=== PATIENT | male | born 1955 | race Caucasian/White ===

== ENCOUNTER 2017-10-27 03:56 | Inpatient (IN) | payer OTHER ==
[~2017-10-27] VITALS: Ht 170.2 cm; Wt 95.3 kg
--- NOTE | 2017-10-27 04:39 | Emergency Room Report ---
History of Present Illness General Chief Complaint: Chest Pain Source: Patient Present Illness HPI Patient is a 61-year-old male brought in by EMS after increased chest discomfort. Patient states he was the having acute onset of chest pain while ambulating. The patient cannot state the other circumstances for pain. Patient was noted to have relief of pain after the EMS provided nitroglycerin. Patient had previously been taking nitroglycerin for angina. Patient had prior history of bipolar disorder. He denies being a smoker. He reports having a prior history of hypertension.The patient reports having recently increased ambulation due to getting lost. Allergies: Coded Allergies: No Known Allergies (Unverified , 10/27/17) Patient History Past Medical History: see triage record Reviewed Nursing Documentation: PMH: Agreed; PSxH: Agreed Nursing Documentation-PMH Hx Hypertension: Yes Review of Systems All Other Systems: limited - by poor historian Physical Exam Vital Signs Date Time Temp Pulse Resp B/P (MAP) Pulse Ox O2 Delivery O2 Flow Rate FiO2 10/27/17 03:41 97.8 104 18 140/90 96 Room Air 97.9 Sp02 EP Interpretation: reviewed, normal General Appearance: normal inspection, well appearing, no apparent distress, alert, GCS 15 Head: atraumatic ENT: normal ENT inspection, hearing grossly normal, normal voice Neck: normal inspection, full range of motion, supple, no bony tend Respiratory: normal inspection, lungs clear, normal breath sounds, no respiratory distress, no retraction, no wheezing Cardiovascular #1: regular rate, rhythm, no edema Gastrointestinal: normal inspection, normal bowel sounds, non tender, soft, no guarding, no hernia Genitourinary: no CVA tenderness Musculoskeletal: normal inspection, back normal, normal range of motion Neurologic: normal inspection, alert, oriented x3, responsive, round boner III-XII nml as tested, speech normal Psychiatric: normal inspection, judgement/insight normal, mood/affect normal Skin: normal inspection, normal color, no rash Medical Decision Making Diagnostic Impression: Primary Impression: Chest pain Additional Impressions: Rhabdomyolysis Dehydration ER Course Patient presented for chest pain. Differential diagnosis included but was not limited to acute coronary syndrome, pulmonary embolism, pneumonia, aortic dissection, shingles, pneumothorax, aortic dissection, esophageal rupture, pericarditis. Because of complexity of patient's case laboratory testing and imaging studies were ordered. I EKG interpreted by me showed normal sinus rhythm with left anterior fascicular block and left ventricular hypertrophy without acute ST or T wave changes. Rate of 102. The patient was noted to be pain-free after the nitroglycerin by EMS. The laboratory testing was notable for elevated CK as well as the normal troponin.The patient started on IV fluids. Patient was discussed with Dr. Darrius Lorenzana for transfer to [facility]. Labs Test 10/27/17 04:50 White Blood Count 6.1 K/UL (4.8-10.8) Red Blood Count 4.89 M/UL (4.70-6.10) Hemoglobin 14.9 G/DL (14.2-18.0) Hematocrit 42.9 % (42.0-52.0) Mean Corpuscular Volume 88 FL (80-99) Mean Corpuscular Hemoglobin 30.5 PG (27.0-31.0) Mean Corpuscular Hemoglobin Concent 34.7 G/DL (32.0-36.0) Red Cell Distribution Width 10.5 % (11.6-14.8) Platelet Count 171 K/UL (150-450) Mean Platelet Volume 6.4 FL (6.5-10.1) Neutrophils (%) (Auto) 83.0 % (45.0-75.0) Lymphocytes (%) (Auto) 13.0 % (20.0-45.0) Monocytes (%) (Auto) 3.4 % (1.0-10.0) Eosinophils (%) (Auto) 0.1 % (0.0-3.0) Basophils (%) (Auto) 0.5 % (0.0-2.0) Sodium Level 143 MMOL/L (136-145) Potassium Level 3.8 MMOL/L (3.5-5.1) Chloride Level 104 MMOL/L (98-107) Carbon Dioxide Level 24 MMOL/L (21-32) Anion Gap 15 mmol/L (5-15) Blood Urea Nitrogen 25 mg/dL (7-18) Creatinine 1.2 MG/DL (0.55-1.30) Estimat Glomerular Filtration Rate > 60 mL/min (>60) Glucose Level 97 MG/DL (74-106) Calcium Level 9.6 MG/DL (8.5-10.1) Total Bilirubin 1.6 MG/DL (0.2-1.0) Aspartate Amino Transf (AST/SGOT) 85 U/L (15-37) Alanine Aminotransferase (ALT/SGPT) 47 U/L (12-78) Alkaline Phosphatase 67 U/L (46-116) Total Creatine Kinase 1758 U/L (26-308) Creatine Kinase MB 58.2 NG/ML (0.0-3.6) Creatine Kinase MB Relative Index 3.3 Troponin I 0.006 ng/mL (0.000-0.056) C-Reactive Protein, Quantitative 0.6 mg/dL (0.00-0.90) Pro-B-Type Natriuretic Peptide 67 pg/mL (0-125) Total Protein 8.8 G/DL (6.4-8.2) Albumin 4.6 G/DL (3.4-5.0) Globulin 4.2 g/dL Albumin/Globulin Ratio 1.1 (1.0-2.7) Lipase 74 U/L (73-393) Urine Opiates Screen Negative (NEGATIVE) Urine Barbiturates Screen Negative (NEGATIVE) Phencyclidine (PCP) Screen Negative (NEGATIVE) Urine Amphetamines Screen Negative (NEGATIVE) Urine Benzodiazepines Screen Negative (NEGATIVE) Urine Cocaine Screen Negative (NEGATIVE) Urine Marijuana (THC) Screen Negative (NEGATIVE) EKG Diagnostic Results Rate: normal Rhythm: NSR ST Segments: no acute changes Rhythm Strip Diag. Results EP Interpretation: yes Rhythm: NSR, no PVC's, no ectopy Last Vital Signs Date Time Temp Pulse Resp B/P (MAP) Pulse Ox O2 Delivery O2 Flow Rate FiO2 10/27/17 03:41 97.8 104 18 140/90 96 Room Air 97.9 Status: improved Disposition: XFER SHT-TRM HOSP Condition: Serious Johnny Boyle MD Oct 27, 2017 04:39
[2017-10-27 04:55] LABS: BASOPHILS % (AUTO) 0.5 % (0.0-2.0); EOSINOPHILS % (AUTO) 0.1 % (0.0-3.0); HEMATOCRIT 42.9 % (42.0-52.0); HEMOGLOBIN 14.9 G/DL (14.2-18.0); MEAN CORPUSCULAR VOLUME 88 FL (80-99); MONOCYTES % (AUTO) 3.4 % (1.0-10.0); PLATELET COUNT 171 K/UL (150-450); RED BLOOD COUNT 4.89 M/UL (4.70-6.10); RED CELL DISTRIBUTION WIDTH 10.5 % (11.6-14.8); WHITE BLOOD COUNT 6.1 K/UL (4.8-10.8)
[2017-10-27 05:06] LABS: ANION GAP 15 mmol/L (5-15); BLOOD UREA NITROGEN 25 mg/dL (7-18); CALCIUM 9.6 MG/DL (8.5-10.1); CARBON DIOXIDE 24 MMOL/L (21-32); CHLORIDE 104 MMOL/L (98-107); CREATININE 1.2 MG/DL (0.55-1.30); POTASSIUM 3.8 MMOL/L (3.5-5.1); SODIUM 143 MMOL/L (136-145)
[2017-10-27] MEDS ORDERED: Sodium Chloride 500ML 500 ML IV ONE ×2 (05:15→05:45)
[2017-10-27 05:20] LABS: ALANINE AMINOTRANSFERASE 47 U/L (12-78); ALBUMIN 4.6 G/DL (3.4-5.0); ALBUMIN/GLOBULIN RATIO 1.1 (1.0-2.7); ALKALINE PHOSPHATASE 67 U/L (46-116); ASPARTATE AMINO TRANSFERASE 85 U/L (15-37); BILIRUBIN,TOTAL 1.6 MG/DL (0.2-1.0); CKMB 58.2 NG/ML (0.0-3.6); CREATINE KINASE 1758 U/L (26-308)
[2017-10-27 05:24] VITALS: BP 119/66
[2017-10-27 05:51] LABS: BILIRUBIN,DIRECT 0.6 MG/DL (0.0-0.3)
[2017-10-27 07:12] VITALS: BP 134/60
[2017-10-27] MEDS ORDERED: ATIVAN0.5 MG ORAL (09:26)
[2017-10-27] MEDS ORDERED: IBUPROFEN600 MG ORAL (09:26)
[2017-10-27] MEDS ORDERED: HYDROCHLOROTH12.5 M2 ORAL (09:26)
[2017-10-27] MEDS ORDERED: LISINOPRIL5 MG ORAL (09:26)
[2017-10-27] MEDS ORDERED: Lisinopril 20mg tab ORAL SCH (09:30)
[2017-10-27] MEDS ORDERED: Lexiscan 0.4mg/5ml syringe IV PRN (09:45)
--- NOTE | 2017-10-27 09:46 | Cardiac Electrophysiology PN ---
Subjective Subjective [id number] Objective Last 24 Hour Vital Signs Date Time Temp Pulse Resp B/P (MAP) Pulse Ox O2 Delivery O2 Flow Rate FiO2 10/27/17 09:27 68 14 125/67 100 Room Air 10/27/17 07:12 97.6 70 12 134/60 99 Nasal Cannula 97.6 10/27/17 05:24 98.0 85 15 119/66 99 Nasal Cannula 98.0 10/27/17 03:56 104 18 Room Air 10/27/17 03:41 97.8 104 18 140/90 96 Room Air 97.9 Intake and Output 10/26/17 10/27/17 19:00 07:00 Intake Total 0 ml Output Total 200 ml Balance -200 ml Intake Oral 0 ml Output Urine Total 200 ml Laboratory Tests Test 10/27/17 04:50 White Blood Count 6.1 K/UL (4.8-10.8) Red Blood Count 4.89 M/UL (4.70-6.10) Hemoglobin 14.9 G/DL (14.2-18.0) Hematocrit 42.9 % (42.0-52.0) Mean Corpuscular Volume 88 FL (80-99) Mean Corpuscular Hemoglobin 30.5 PG (27.0-31.0) Mean Corpuscular Hemoglobin Concent 34.7 G/DL (32.0-36.0) Red Cell Distribution Width 10.5 % (11.6-14.8) L Platelet Count 171 K/UL (150-450) Mean Platelet Volume 6.4 FL (6.5-10.1) L Neutrophils (%) (Auto) 83.0 % (45.0-75.0) H Lymphocytes (%) (Auto) 13.0 % (20.0-45.0) L Monocytes (%) (Auto) 3.4 % (1.0-10.0) Eosinophils (%) (Auto) 0.1 % (0.0-3.0) Basophils (%) (Auto) 0.5 % (0.0-2.0) Sodium Level 143 MMOL/L (136-145) Potassium Level 3.8 MMOL/L (3.5-5.1) Chloride Level 104 MMOL/L (98-107) Carbon Dioxide Level 24 MMOL/L (21-32) Anion Gap 15 mmol/L (5-15) Blood Urea Nitrogen 25 mg/dL (7-18) H Creatinine 1.2 MG/DL (0.55-1.30) Estimat Glomerular Filtration Rate > 60 mL/min (>60) Glucose Level 97 MG/DL (74-106) Calcium Level 9.6 MG/DL (8.5-10.1) Total Bilirubin 1.6 MG/DL (0.2-1.0) H Direct Bilirubin 0.6 MG/DL (0.0-0.3) H Aspartate Amino Transf (AST/SGOT) 85 U/L (15-37) H Alanine Aminotransferase (ALT/SGPT) 47 U/L (12-78) Alkaline Phosphatase 67 U/L (46-116) Total Creatine Kinase 1758 U/L (26-308) H Creatine Kinase MB 58.2 NG/ML (0.0-3.6) H Creatine Kinase MB Relative Index 3.3 Troponin I 0.006 ng/mL (0.000-0.056) C-Reactive Protein, Quantitative 0.6 mg/dL (0.00-0.90) Pro-B-Type Natriuretic Peptide 67 pg/mL (0-125) Total Protein 8.8 G/DL (6.4-8.2) H Albumin 4.6 G/DL (3.4-5.0) Globulin 4.2 g/dL Albumin/Globulin Ratio 1.1 (1.0-2.7) Lipase 74 U/L (73-393) Urine Opiates Screen Negative (NEGATIVE) Urine Barbiturates Screen Negative (NEGATIVE) Phencyclidine (PCP) Screen Negative (NEGATIVE) Urine Amphetamines Screen Negative (NEGATIVE) Urine Benzodiazepines Screen Negative (NEGATIVE) Urine Cocaine Screen Negative (NEGATIVE) Urine Marijuana (THC) Screen Negative (NEGATIVE) Dudley Shoemaker MD Oct 27, 2017 09:46
--- NOTE | 2017-10-27 10:30 | GI Initial Consult Note ---
History of Present Illness General Date patient seen: Oct 27, 2017 Time patient seen: 14:05 Reason for Hospitalization: Chest Pain Referring physician: ROMY Reason for Consultation: ABNORMAL LFTs Present Illness HPI Patient is a 61-year-old male brought in by EMS after increased chest discomfort. Patient states he was the having acute onset of chest pain while ambulating. The patient cannot state the other circumstances for pain. Patient was noted to have relief of pain after the EMS provided nitroglycerin. Patient had previously been taking nitroglycerin for angina. Patient had prior history of bipolar disorder. He denies being a smoker. He reports having a prior history of hypertension.The patient reports having recently increased ambulation due to getting lost. GI consulted for abnormal LFTs. Pt seen, awake A&Ox4 NAD with no active s/sx of N/V/D. Denies any abdominal pain, no diarrhea or N/V. Presents today with elevated AST and hyperbilirubinemia. No anemia. No leukocytosis. Pt states he has history of Hepatitis C. No history of endoscopy / colonoscopy. Home Meds Reported Medications Lorazepam* (ATIVAN*) 0.5 Mg Tablet, 0.5 MG ORAL THREE TIMES A DAY, TAB 10/27/17 Ibuprofen* (MOTRIN*) 600 Mg Tablet, 600 MG ORAL FOUR TIMES A DAY, #30 TAB 0 Refills 10/27/17 Lisinopril (LISINOPRIL*) 5 Mg Tablet, 5 MG ORAL DAILY, TAB 10/27/17 Hydrochlorothiazide* (HYDROCHLOROTHIAZIDE*) 12.5 Mg Capsule, 12.5 MG ORAL DAILY , CAP 10/27/17 Med list reviewed/reconciled: Yes Allergies: Coded Allergies: No Known Allergies (Unverified , 10/27/17) Patient History History Provided By: Patient, Medical Record PMH Narrative Hx Hypertension: Yes Social History: Denies: smoking, alcohol use, drug use, other Review of Systems All Other Systems: negative except mentioned in HPI Physical Exam Vital Signs Date Time Temp Pulse Resp B/P (MAP) Pulse Ox O2 Delivery O2 Flow Rate FiO2 10/27/17 03:41 97.8 104 18 140/90 96 Room Air 97.9 Sp02 EP Interpretation: reviewed, normal Labs Laboratory Tests Test 10/27/17 04:50 White Blood Count 6.1 K/UL (4.8-10.8) Red Blood Count 4.89 M/UL (4.70-6.10) Hemoglobin 14.9 G/DL (14.2-18.0) Hematocrit 42.9 % (42.0-52.0) Mean Corpuscular Volume 88 FL (80-99) Mean Corpuscular Hemoglobin 30.5 PG (27.0-31.0) Mean Corpuscular Hemoglobin Concent 34.7 G/DL (32.0-36.0) Red Cell Distribution Width 10.5 % (11.6-14.8) L Platelet Count 171 K/UL (150-450) Mean Platelet Volume 6.4 FL (6.5-10.1) L Neutrophils (%) (Auto) 83.0 % (45.0-75.0) H Lymphocytes (%) (Auto) 13.0 % (20.0-45.0) L Monocytes (%) (Auto) 3.4 % (1.0-10.0) Eosinophils (%) (Auto) 0.1 % (0.0-3.0) Basophils (%) (Auto) 0.5 % (0.0-2.0) Sodium Level 143 MMOL/L (136-145) Potassium Level 3.8 MMOL/L (3.5-5.1) Chloride Level 104 MMOL/L (98-107) Carbon Dioxide Level 24 MMOL/L (21-32) Anion Gap 15 mmol/L (5-15) Blood Urea Nitrogen 25 mg/dL (7-18) H Creatinine 1.2 MG/DL (0.55-1.30) Estimat Glomerular Filtration Rate > 60 mL/min (>60) Glucose Level 97 MG/DL (74-106) Calcium Level 9.6 MG/DL (8.5-10.1) Total Bilirubin 1.6 MG/DL (0.2-1.0) H Direct Bilirubin 0.6 MG/DL (0.0-0.3) H Aspartate Amino Transf (AST/SGOT) 85 U/L (15-37) H Alanine Aminotransferase (ALT/SGPT) 47 U/L (12-78) Alkaline Phosphatase 67 U/L (46-116) Total Creatine Kinase 1758 U/L (26-308) H Creatine Kinase MB 58.2 NG/ML (0.0-3.6) H Creatine Kinase MB Relative Index 3.3 Troponin I 0.006 ng/mL (0.000-0.056) C-Reactive Protein, Quantitative 0.6 mg/dL (0.00-0.90) Pro-B-Type Natriuretic Peptide 67 pg/mL (0-125) Total Protein 8.8 G/DL (6.4-8.2) H Albumin 4.6 G/DL (3.4-5.0) Globulin 4.2 g/dL Albumin/Globulin Ratio 1.1 (1.0-2.7) Lipase 74 U/L (73-393) Urine Opiates Screen Negative (NEGATIVE) Urine Barbiturates Screen Negative (NEGATIVE) Phencyclidine (PCP) Screen Negative (NEGATIVE) Urine Amphetamines Screen Negative (NEGATIVE) Urine Benzodiazepines Screen Negative (NEGATIVE) Urine Cocaine Screen Negative (NEGATIVE) Urine Marijuana (THC) Screen Negative (NEGATIVE) General Appearance: well appearing, no apparent distress, alert Head: normocephalic EENT: PERRL/EOMI, normal ENT inspection Neck: supple Respiratory: normal breath sounds, no respiratory distress Cardiovascular: normal rate Gastrointestinal: normal inspection, non tender, soft, normal bowel sounds, non -distended Rectal: deferred Genitourinary: deferred Musculoskeletal: normal inspection, back normal Neurologic: normal inspection, alert, oriented x3, responsive Psychiatric: normal inspection, judgement/insight normal, memory normal Skin: normal inspection, normal color, no rash, warm/dry, palpation normal, well hydrated Lymphatic: normal inspection, no adenopathy Current Medications Current Medications Medications (Trade) Dose Ordered Sig/Isatu Route PRN Reason Start Time Stop Time Status Last Admin Dose Admin Acetaminophen (Tylenol) 650 mg Q4H PRN ORAL Mild Pain (Pain Scale 1-3) 10/27/17 09:15 11/26/17 09:14 Dextrose (Dextrose 50%) 25 ml STAT PRN IV Hypoglycemia 10/27/17 09:15 11/26/17 09:14 Dextrose (Dextrose 50%) 50 ml STAT PRN IV Hypoglycemia 10/27/17 09:15 11/26/17 09:14 Diphenhydramine HCl (Benadryl) 25 mg Q6H PRN ORAL Itching/Pruritis 10/27/17 09:15 11/26/17 09:14 Enoxaparin Sodium (Lovenox) 40 mg Q24H SUBQ 10/27/17 10:00 11/26/17 09:59 Folic Acid (Folate) 1 mg DAILY ORAL 10/27/17 09:45 11/26/17 09:44 Lisinopril (Zestril) 10 mg DAILY ORAL 10/28/17 09:00 11/26/17 09:29 Ondansetron HCl (Zofran) 4 mg Q6H PRN IVP Nausea & Vomiting 10/27/17 09:15 11/26/17 09:14 Regadenoson (Lexiscan) 0.4 mg ONCE PRN IV PROCEDURE 10/27/17 09:45 10/28/17 23:59 Sodium Chloride 1,000 ml @ 150 mls/hr Q6H40M IV 10/27/17 05:45 11/26/17 05:44 Thiamine HCl (Vitamin B1) 100 mg DAILY ORAL 10/27/17 09:45 11/26/17 09:44 GI: Plan Problems: (1) Dehydration (2) Abnormal LFTs Plan no anemia. no leukocytosis. abnormal LFTs >> avoid statins, acetaminophen CT AP reviewed >> No acute findings. symptomatic treatment adv diet pain mgmt zofran prn prn transfusions ppi trend LFTs fu labs, hepatitis panel outpatient GI procedures Discussed with Dr. Sorto. Thank you for this patient referral, we will follow. The patient was seen and examined at bedside and all new and available data was reviewed in the patients chart. I agree with the above findings, impression and plan. (Patient seen earlier today. Signature stamp does not reflect patient encounter time.). - MD Qing RubioPage [facility] Oct 27, 2017 10:30
[2017-10-27] MEDS: Thiamine 100mg tab ORAL SCH (11:02)
[2017-10-27] MEDS: Enoxaparin 40mg Inj SUBQ SCH (11:05)
--- NOTE | 2017-10-27 11:30 | Diagnostic Imaging Report ---
Indication: Abdominal pain Technique: Continuous helical transaxial imaging of the abdomen and pelvis was obtained from the lung bases to the pubic symphysis. No intravenous contrast was administered. Coronal 2-D reformats were also obtained. Automatic Exposure Control was utilized. Total Dose length Product (DLP): [address] Dose Index Volume (CTDIvol): 0.15, 17.49 mGy Comparison: none Findings: The lung bases are clear. The liver is unremarkable. There is cholecystectomy clips present. There is no hydronephrosis. There are no renal stones identified. Normal appendix noted. No evidence of bowel obstruction. Mild mural calcium noted within the aorta. There is a small left inguinal hernia containing fat. Prostate calcification noted. Mild loss of height of L4 vertebra and multiple Schmorl's nodes within thoracic vertebral bodies noted. IMPRESSION: No acute findings. Atherosclerotic disease Status post cholecystectomy Old compression fracture deformity of the L4 vertebra. [facility] has communicated the preliminary results to the Emergency Department. Their findings are largely concordant with this report. The CT scanner at [facility] is accredited by the [employer] and the scans are performed using dose optimization techniques as appropriate to a performed exam including Automatic Exposure control.
--- NOTE | 2017-10-27 12:28 | Diagnostic Imaging Report ---
Indication: Dyspnea Comparison: None A single view chest radiograph was obtained. Findings: No definite infiltrate or pulmonary vascular congestion identified. The heart is enlarged. The aorta is mildly enlarged consistent with atherosclerotic vascular disease. The bones are osteopenic. Impression: No acute disease
--- NOTE | 2017-10-27 16:45 | History and Physical Report ---
DATE OF ADMISSION: 10/27/2017 REASON FOR ADMISSION: 1. Chest pain. 2. Rhabdomyolysis. HISTORY OF PRESENT ILLNESS: The patient is a 61-year-old gentleman brought in by EMS for further evaluation and care of chest discomfort into the emergency room. The patient states that he moved to [place] approximately one year ago and was walking around his neighborhood when he started developing some chest pain. He asked a bystander to call 911 due to his chest pain. He had some relief after nitroglycerin. The patient does have a history of bipolar disorder. He denies any current tobacco or illicit drug use. He says he takes lisinopril for hypertension. The patient is forgetful and it is unclear, which medication he is taking on a regular basis. PAST MEDICAL HISTORY: 1. Hypertension. 2. Bipolar disorder. 3. Questionable ascites, liver dysfunction. 4. Anxiety disorder. SURGICAL HISTORY: Noncontributory. ALLERGIES: No known drug allergies. SOCIAL HISTORY: The patient denies any tobacco, alcohol, or illicit drug use. REVIEW OF SYSTEMS: NEUROLOGIC: The patient denies headache, change in vision, syncope, or presyncopal episodes. CARDIOVASCULAR: He was having some chest pressure and tightness. PULMONARY: No difficulty breathing, productive cough, or sputum. GASTROINTESTINAL/GENITOURINARY: No change in urine or bowel habits. No nausea, vomiting, or diarrhea. ENDOCRINOLOGY: No night sweats, fevers, or chills. PHYSICAL EXAMINATION: VITAL SIGNS: Blood pressure 134/60, 99% oxygen saturation on room air, respiratory rate 12, pulse 70, and temperature 97.6. GENERAL: The patient is awake, in no overt distress. HEENT: Extraocular muscles intact. No lymphadenopathy noted. CARDIOVASCULAR: S1, S2. No rubs or gallops. PULMONARY: Clear to auscultation bilaterally. No rales, rhonchi, or wheezes. ABDOMEN: Mildly distended and nontender. EXTREMITY: No edema noted. LABORATORY DATA: Labs dated 10/27/2017 sodium 143, potassium 3.8, chloride 104, bicarb 24, BUN 25, and creatinine 1.2. Calcium 9.6. Total bilirubin 1.6. AST 85 and ALT 47. White cell count 6.1, hemoglobin 14.9, and platelet count 171,000. CPK 1758. Troponin 0.006. ASSESSMENT AND PLAN: 1. Acute kidney injury. Mild in nature. Creatinine 1.2. It could be secondary to pigment nephropathy from mild rhabdomyolysis. At this time, continue aggressive hydration and monitor renal function. At this time, no further renal investigations required unless renal function deteriorates. 2. Acute coronary syndrome/chest pain. Cardiology has been consulted, Dr. Shoemaker for further evaluation and management. 3. Transaminitis with elevated LFTs. We will consult Gastroenterology. 4. Hypertension. We will continue lisinopril and monitor creatinine and blood pressure during hospitalization. 5. DVT prophylaxis with Lovenox 40 mg subcutaneous daily. David Gorman MD DR: JAMES JOB#: [id number] CC:
--- NOTE | 2017-10-27 18:00 | Consultation ---
DATE OF CONSULTATION: 10/27/2017 CARDIOLOGY CONSULTATION CONSULTING PHYSICIAN: Dudley Shoemaker M.D. REFERRING PHYSICIAN: Bert Coreas M.D. REASON FOR CONSULTATION: Chest pain. HISTORY OF PRESENT ILLNESS: The patient is a 61-year-old gentleman with history of hypertension, no known coronary artery disease, presented to the emergency room with chest pain while he was ambulating. The patient has been getting nitroglycerin for angina, even though he does not have history of stent or coronary artery bypass or prior myocardial infarction. The patient also has history of bipolar disorder, but denies smoking or drinking alcohol. The patient was admitted and a Cardiology consultation was obtained for further evaluation. In the emergency room, blood pressure was 140/90 and EKG showed sinus tachycardia with left anterior fascicular block with left ventricular hypertrophy with no acute ST-T wave abnormality. His initial troponin was also negative. PAST MEDICAL HISTORY: 1. Hypertension. 2. History of bipolar disorder. MEDICATIONS: Per reconciliation. FAMILY HISTORY: Noncontributory. REVIEW OF SYSTEMS: Performed and was negative other than what was mentioned in the history of present illness. PHYSICAL EXAMINATION: VITAL SIGNS: Show blood pressure of 124/67, pulse 68, respirations 14, and temperature 97.6. HEAD AND NECK: Showed no JVD or carotid bruits. LUNGS: Clear. CARDIOVASCULAR: Shows regular S1 and S2 with no gallop or murmur. ABDOMEN: Soft. EXTREMITIES: No pitting edema. LABORATORY DATA: Labs show white count of 6.1, hemoglobin of 14.9, hematocrit of 42.9, and platelet count 171,000. Sodium 142, potassium 3.8, BUN of 25, and creatinine 1.2. Troponin is negative, CK is 1758, CK-MB of 58. His urine toxicology is negative. ASSESSMENT AND PLAN: 1. Chest pain in a patient with history of hypertension. We will completely rule out myocardial infarction protocol. We will get an echocardiogram. EKG does show acute ischemia. The patient will need a nuclear stress test before discharge. 2. Hypertension. Resume the patient's antihypertensive and lisinopril 10 mg daily. 3. Elevated bilirubin 1.6. 4. Rhabdomyolysis with CK of 1700 and with negative troponin. The patient will be given IV hydration. 5. Renal failure, likely due to rhabdomyolysis. Thank you very much, Dr. Gorman and Dr. Coreas, for allowing me to participate in the care of this patient. Please do not hesitate to contact me for any questions regarding my evaluation. Dudley Shoemaker M.D. DR: SANDRINE JOB#: [id number] CC:
--- NOTE | 2017-10-27 19:24 | Cardiology Report ---
APPROVED REPORT EXAM: Two-dimensional and M-mode echocardiogram with Doppler and color Doppler. INDICATION Chest Pain M-Mode DIMENSIONS IVSd1.1 (0.7-1.1cm)Left Atrium (MM)4.1 (1.6-4.0cm) LVDd5.4 (3.5-5.6cm)Aortic Root3.3 (2.0-3.7cm) PWd1.4 (0.7-1.1cm)Aortic Cusp Exc.1.8 (1.5-2.0cm) IVSs1.4 cm LVDs3.5 (2.5-4.0cm) PWs2.1 cm Technically difficult study due to poor acoustical windows . Normal left ventricular chamber size,grossly normal systolic function and wall motion as well visualized. Left ventricular ejection fraction estimated to be 60-65 %. No evidence of left ventricular hypertrophy . No evidence of pericardial effusion. All other cardiac chamber sizes are within normal limits. Midldy Focal aortic valve sclerosis with adequate cusp excursion. Moderately Thickened mitral valve leaflets with normal excursion. Moderately Mitral annulus and aortic root calcification. Pulmonic valve not well visualized. Normal tricuspid valve structure. IVC dilated at size 2.6 cm with physiologic collapse. A color flow and spectral Doppler study was performed and revealed: No aortic regurgitation. Trace mitral regurgitation. Mitral dovs7ci suggestive of moderate diastlic dysfucntion Trace tricuspid regurgitation. Tricuspid systolic velocities suggests peak right ventricular systolic pressure of 21mmHg, No Pulmonic regurgitation present.
[2017-10-28 04:09] LABS: BASOPHILS % (AUTO) 1.8 % (0.0-2.0); EOSINOPHILS % (AUTO) 3.4 % (0.0-3.0); HEMATOCRIT 36.9 % (42.0-52.0); HEMOGLOBIN 13.2 G/DL (14.2-18.0); LYMPHOCYTES % (AUTO) 39.3 % (20.0-45.0); MEAN CORPUSCULAR VOLUME 89 FL (80-99); MONOCYTES % (AUTO) 8.3 % (1.0-10.0); NEUTROPHILS % (AUTO) 47.3 % (45.0-75.0); PLATELET COUNT 127 K/UL (150-450); RED BLOOD COUNT 4.16 M/UL (4.70-6.10); RED CELL DISTRIBUTION WIDTH 10.5 % (11.6-14.8); WHITE BLOOD COUNT 4.7 K/UL (4.8-10.8)
[2017-10-28 04:57] LABS: ANION GAP 9 mmol/L (5-15); BLOOD UREA NITROGEN 22 mg/dL (7-18); CALCIUM 8.7 MG/DL (8.5-10.1); CARBON DIOXIDE 25 MMOL/L (21-32); CHLORIDE 105 MMOL/L (98-107); CHOLESTEROL 93 MG/DL (< 200); CREATINE KINASE 1200 U/L (26-308); CREATININE 0.8 MG/DL (0.55-1.30); HDL CHOLESTEROL 42 MG/DL (40-60); POTASSIUM 4.1 MMOL/L (3.5-5.1); SODIUM 139 MMOL/L (136-145); TRIGLYCERIDES 39 MG/DL (30-150)
[2017-10-28 05:01] LABS: ALANINE AMINOTRANSFERASE 42 U/L (12-78); ALBUMIN 3.5 G/DL (3.4-5.0); ALKALINE PHOSPHATASE 61 U/L (46-116); ASPARTATE AMINO TRANSFERASE 80 U/L (15-37); BILIRUBIN,DIRECT 0.2 MG/DL (0.0-0.3); BILIRUBIN,TOTAL 0.8 MG/DL (0.2-1.0)
[2017-10-28 08:00] VITALS: BP 126/66
--- NOTE | 2017-10-28 08:52 | Discharge Instructions ---
Discharge Instructions Discharge Instructions Diet: 2 GM sodium (low sodium) Resume Normal Activity?: Yes Activity: resume normal activities Pneumonia Vaccine: vaccine not indicated Influenza Vaccine (Feb to Jul): vaccine not indicated Follow Up Orders 1. F/U GI 1 week 2. F/U PCP 1 week 3. F/U Cardiology 1 week For Congestive Heart Failure Reminder Report to your physician any weight gain of 5 pounds or more in one week. David Gorman M.D. Oct 28, 2017 08:52
--- NOTE | 2017-10-28 08:55 | Nephrology Progress Note ---
Assessment/Plan Assessment/Plan 1. BARBARA- resolved, secondary volume depletion. Cr back to normal 2. Rhabdo- resolving. CPK 1800---1200. IVF's until time of DC 3. Chest Pain- resolved. Neg stress and Trop I 4. Transaminitis- resolving. GI to follow Patient to be discharged today once cleared by GI and cardiology. DC orders and f/u instructions placed Subjective Date patient seen: Oct 28, 2017 Time patient seen: 08:52 ROS Limited/Unobtainable: No Allergies: Coded Allergies: No Known Allergies (Unverified , 10/27/17) All Systems: reviewed and negative except above Subjective Patient in no distress. Chest pain resolved Objective Last 24 Hour Vital Signs Date Time Temp Pulse Resp B/P (MAP) Pulse Ox O2 Delivery O2 Flow Rate FiO2 10/28/17 04:00 62 10/28/17 00:00 64 10/27/17 20:00 69 10/27/17 16:00 72 10/27/17 12:00 69 10/27/17 09:27 68 14 125/67 100 Room Air Intake and Output 10/27/17 10/28/17 19:00 07:00 Intake Total 1100 ml Balance 1100 ml Intake Oral 600 ml IV Total 500 ml # Voids 4 6 Laboratory Tests 10/27/17 11:17: Troponin I 0.007 10/27/17 18:45: Troponin I 0.008 10/28/17 03:13: Troponin I 0.009, White Blood Count 4.7L, Red Blood Count 4.16L, Hemoglobin 13.2L, Hematocrit 36.9L, Mean Corpuscular Volume 89, Mean Corpuscular Hemoglobin 31.6H, Mean Corpuscular Hemoglobin Concent 35.7, Red Cell Distribution Width 10.5L, Platelet Count 127L, Mean Platelet Volume 6.4L, Neutrophils (%) (Auto) 47.3, Lymphocytes (%) (Auto) 39.3, Monocytes (%) (Auto) 8.3, Eosinophils (%) (Auto) 3.4H, Basophils (%) (Auto) 1.8, Sodium Level 139, Potassium Level 4.1, Chloride Level 105, Carbon Dioxide Level 25, Anion Gap 9, Blood Urea Nitrogen 22H, Creatinine 0.8, Estimat Glomerular Filtration Rate > 60 , Glucose Level 111H, Calcium Level 8.7, Total Bilirubin 0.8, Direct Bilirubin 0.2, Aspartate Amino Transf (AST/SGOT) 80H, Alanine Aminotransferase (ALT/SGPT) 42, Alkaline Phosphatase 61, Total Creatine Kinase 1200H, Pro-B-Type Natriuretic Peptide 61, Total Protein 7.2, Albumin 3.5, Triglycerides Level 39, Cholesterol Level 93, LDL Cholesterol 54, HDL Cholesterol 42, Cholesterol/HDL Ratio 2.2L, Hepatitis A IgM Antibody [Pending], Hepatitis B Surface Antigen [ Pending], Hepatitis B Core IgM Antibody [Pending], Hepatitis C Antibody [Pending ] Height (Feet): 5 Height (Inches): 7.00 Weight (Pounds): 210 General Appearance: WD/WN, no apparent distress EENT: PERRL/EOMI, normal ENT inspection Neck: normal alignment, supple Cardiovascular: normal rate, regular rhythm Respiratory/Chest: lungs clear, normal breath sounds Abdomen: non tender, soft Edema: no edema noted Arm (L), no edema noted Arm (R), no edema noted Leg (L), no edema noted Leg (R), no edema noted Pedal (L), no edema noted Pedal (R), no edema noted Generalized David Gorman M.D. Oct 28, 2017 08:55
[2017-10-28] MEDS ORDERED: Lisinopril 10mg tab ORAL SCH (09:00)
[2017-10-28] MEDS: Thiamine 100mg tab ORAL SCH (09:34)
[2017-10-28] MEDS: Enoxaparin 40mg Inj SUBQ SCH (09:36)
--- NOTE | 2017-10-28 10:53 | General Progress Note ---
Assessment/Plan Problem List: (1) Dehydration ICD Codes: E86.0 - Dehydration SNOMED: 18019936 (2) Rhabdomyolysis ICD Codes: M62.82 - Rhabdomyolysis SNOMED: 224295988 (3) Chest pain ICD Codes: R07.9 - Chest pain, unspecified SNOMED: 17019338 (4) Abnormal LFTs ICD Codes: R94.5 - Abnormal results of liver function studies SNOMED: 592076369 Assessment/Plan no anemia. no leukocytosis. abnormal LFTs >> possibly due to rhabdo>> repeat LFTS in am CT AP reviewed >> No acute findings. symptomatic treatment adv diet pain mgmt zofran prn prn transfusions ppi trend LFTs fu labs, hepatitis panel outpatient GI procedures fu cardiology Subjective ROS Limited/Unobtainable: Yes Allergies: Coded Allergies: No Known Allergies (Unverified , 10/27/17) Objective Last 24 Hour Vital Signs Date Time Temp Pulse Resp B/P (MAP) Pulse Ox O2 Delivery O2 Flow Rate FiO2 10/28/17 09:35 126/66 10/28/17 08:00 74 10/28/17 08:00 98.0 76 18 126/66 100 Room Air 98.0 10/28/17 04:00 62 10/28/17 00:00 64 10/27/17 20:00 69 10/27/17 16:00 72 10/27/17 12:00 69 Intake and Output 10/27/17 10/28/17 19:00 07:00 Intake Total 1100 ml Balance 1100 ml Intake Oral 600 ml IV Total 500 ml # Voids 4 6 Laboratory Tests 10/27/17 11:17: Troponin I 0.007 10/27/17 18:45: Troponin I 0.008 10/28/17 03:13: Troponin I 0.009, White Blood Count 4.7L, Red Blood Count 4.16L, Hemoglobin 13.2L, Hematocrit 36.9L, Mean Corpuscular Volume 89, Mean Corpuscular Hemoglobin 31.6H, Mean Corpuscular Hemoglobin Concent 35.7, Red Cell Distribution Width 10.5L, Platelet Count 127L, Mean Platelet Volume 6.4L, Neutrophils (%) (Auto) 47.3, Lymphocytes (%) (Auto) 39.3, Monocytes (%) (Auto) 8.3, Eosinophils (%) (Auto) 3.4H, Basophils (%) (Auto) 1.8, Sodium Level 139, Potassium Level 4.1, Chloride Level 105, Carbon Dioxide Level 25, Anion Gap 9, Blood Urea Nitrogen 22H, Creatinine 0.8, Estimat Glomerular Filtration Rate > 60 , Glucose Level 111H, Calcium Level 8.7, Total Bilirubin 0.8, Direct Bilirubin 0.2, Aspartate Amino Transf (AST/SGOT) 80H, Alanine Aminotransferase (ALT/SGPT) 42, Alkaline Phosphatase 61, Total Creatine Kinase 1200H, Pro-B-Type Natriuretic Peptide 61, Total Protein 7.2, Albumin 3.5, Triglycerides Level 39, Cholesterol Level 93, LDL Cholesterol 54, HDL Cholesterol 42, Cholesterol/HDL Ratio 2.2L, Hepatitis A IgM Antibody [Pending], Hepatitis B Surface Antigen [ Pending], Hepatitis B Core IgM Antibody [Pending], Hepatitis C Antibody [Pending ] Height (Feet): 5 Height (Inches): 7.00 Weight (Pounds): 210 General Appearance: alert EENT: normal ENT inspection Neck: supple Cardiovascular: normal rate Respiratory/Chest: decreased breath sounds Abdomen: normal bowel sounds, non tender, soft Extremities: non-tender Dante Sorto MD Oct 28, 2017 10:53
[2017-10-28 12:00] VITALS: BP 112/75
--- NOTE | 2017-10-28 12:41 | Cardiac Electrophysiology PN ---
Assessment/Plan Status Narrative Technically difficult study due to poor acoustical windows . Normal left ventricular chamber size,grossly normal systolic function and wall motion as well visualized. Left ventricular ejection fraction estimated to be 60-65 %. No evidence of left ventricular hypertrophy . No evidence of pericardial effusion. All other cardiac chamber sizes are within normal limits. Midldy Focal aortic valve sclerosis with adequate cusp excursion. Moderately Thickened mitral valve leaflets with normal excursion. Moderately Mitral annulus and aortic root calcification. Pulmonic valve not well visualized. Normal tricuspid valve structure. IVC dilated at size 2.6 cm with physiologic collapse. Assessment/Plan 1. Chest pain in a patient with history of hypertension. Completely ruled out myocardial infarction and echocardiogram showed Nl EF. EKG does show acute ischemia. Nuclear stress test on Monday 2. Hypertension. On lisinopril 10 mg daily. 3. Elevated bilirubin 1.6. 4. Rhabdomyolysis with CK of 1700 dwon to 1200. getting NS 125 cc/hr IV hydration. 5. Renal failure, likely due to rhabdomyolysis.Resolved DW RN and Dr Gorman Subjective Subjective No CP or SOB. No arrhythmias on tele. Objective Last 24 Hour Vital Signs Date Time Temp Pulse Resp B/P (MAP) Pulse Ox O2 Delivery O2 Flow Rate FiO2 10/28/17 09:35 126/66 10/28/17 08:00 74 10/28/17 08:00 98.0 76 18 126/66 100 Room Air 98.0 10/28/17 04:00 62 10/28/17 00:00 64 10/27/17 20:00 69 10/27/17 16:00 72 Intake and Output 10/27/17 10/28/17 19:00 07:00 Intake Total 1100 ml Balance 1100 ml Intake Oral 600 ml IV Total 500 ml # Voids 4 6 Laboratory Tests Test 10/27/17 18:45 10/28/17 03:13 Troponin I 0.008 ng/mL (0.000-0.056) 0.009 ng/mL (0.000-0.056) White Blood Count 4.7 K/UL (4.8-10.8) L Red Blood Count 4.16 M/UL (4.70-6.10) L Hemoglobin 13.2 G/DL (14.2-18.0) L Hematocrit 36.9 % (42.0-52.0) L Mean Corpuscular Volume 89 FL (80-99) Mean Corpuscular Hemoglobin 31.6 PG (27.0-31.0) H Mean Corpuscular Hemoglobin Concent 35.7 G/DL (32.0-36.0) Red Cell Distribution Width 10.5 % (11.6-14.8) L Platelet Count 127 K/UL (150-450) L Mean Platelet Volume 6.4 FL (6.5-10.1) L Neutrophils (%) (Auto) 47.3 % (45.0-75.0) Lymphocytes (%) (Auto) 39.3 % (20.0-45.0) Monocytes (%) (Auto) 8.3 % (1.0-10.0) Eosinophils (%) (Auto) 3.4 % (0.0-3.0) H Basophils (%) (Auto) 1.8 % (0.0-2.0) Sodium Level 139 MMOL/L (136-145) Potassium Level 4.1 MMOL/L (3.5-5.1) Chloride Level 105 MMOL/L (98-107) Carbon Dioxide Level 25 MMOL/L (21-32) Anion Gap 9 mmol/L (5-15) Blood Urea Nitrogen 22 mg/dL (7-18) H Creatinine 0.8 MG/DL (0.55-1.30) Estimat Glomerular Filtration Rate > 60 mL/min (>60) Glucose Level 111 MG/DL (74-106) H Calcium Level 8.7 MG/DL (8.5-10.1) Total Bilirubin 0.8 MG/DL (0.2-1.0) Direct Bilirubin 0.2 MG/DL (0.0-0.3) Aspartate Amino Transf (AST/SGOT) 80 U/L (15-37) H Alanine Aminotransferase (ALT/SGPT) 42 U/L (12-78) Alkaline Phosphatase 61 U/L (46-116) Total Creatine Kinase 1200 U/L (26-308) H Pro-B-Type Natriuretic Peptide 61 pg/mL (0-125) Total Protein 7.2 G/DL (6.4-8.2) Albumin 3.5 G/DL (3.4-5.0) Triglycerides Level 39 MG/DL (30-150) Cholesterol Level 93 MG/DL (< 200) LDL Cholesterol 54 mg/dL (<100) HDL Cholesterol 42 MG/DL (40-60) Cholesterol/HDL Ratio 2.2 (3.3-4.4) L Hepatitis A IgM Antibody Pending Hepatitis B Surface Antigen Pending Hepatitis B Core IgM Antibody Pending Hepatitis C Antibody Pending Objective HEAD AND NECK: Showed no JVD or carotid bruits. LUNGS: Clear. CARDIOVASCULAR: Shows regular S1 and S2 with no gallop or murmur. ABDOMEN: Soft. EXTREMITIES: No pitting edema. Dudley Shoemaker MD Oct 28, 2017 12:41
[2017-10-28] MEDS ORDERED: Lexiscan 0.4mg/5ml syringe IV PRN (12:45)
[2017-10-28 16:00] VITALS: BP 125/62
[2017-10-28] MEDS ORDERED: LORazepam 1mg tab ORAL PRN (16:15)
--- NOTE | 2017-10-30 11:14 | Discharge Summary ---
Discharge Summary Discharge Summary _ DATE OF ADMISSION: 10/27/2017 DATE OF DISCHARGE: 10/28/2017 REASON FOR ADMISSION: 51 years old male with past medical history significant for hypertension and bipolar disorder, brought for evaluation due to chest discomfort. Patient was waling around his neighborhood , when he started to develop chest pain. He asked the bystander to call 911. He reported relief after nitroglycerin given by paramedics. Patient denied smoking or use of the illicit street drugs. Upon evaluation in ED troponin was negative, EKG revealed no acute ischemic changes. CK 1758. BUN 25, creatinine 1.2. AST 85, total bili 1.6 ,direct bili 0.6, lipase within normal limits. No leukocytosis, no anemia. Chest x- ray revealed no acute cardiopulmonary pathology. CT of the abdomen and pelvis revealed no acute pathology. Patient admitted with diagnosis of rhabdomyolysis , acute kidney injury, chest pain, rule out acute coronary syndrome, transaminitis ,hypertension. CONSULTANTS: blade aligner Dr. Shoemaker GI specialist [facility] COURSE: Patient admitted to telemetry floor. Patient started on aggressive IV hydration. Cardiology consult was requested. Serial troponin were negative. EKG revealed no acute ischemic changes. Echocardiogram revealed preserved ejection fraction of 60-65% with normal wall motion. No evidence of left ventricular hypertrophy. Right ventricular systolic pressure of 21. Per blade aligner, since acute coronary syndrome was completely rule out by negative serial troponin and nonischemic EKG, stress test could be done as an outpatient. GI closely followed. According to the GI specialist, abnormal LFT were likely secondary to rhabdomyolysis. CT scan of abdomen and pelvis was unrevealing, hepatitis panel was ordered. Hepatitis panel revealed evidence of hepatitis C infection. No leukocytosis, no anemia. GI recommended advanced diet as tolerated. Patient was on PPI. Patient was on DVT prophylaxis. Hemoglobin and hematocrit remained stable. Pain management addressed as needed. Renal parameters and electrolytes were closely monitored. Electrolytes corrected as needed. Nephrotoxins were avoided. Acute kidney injury was likely secondary to dehydration, BUN down to 22. AST trending down. Total and direct bilirubin down to normal. CK trending down from initial 1758 down to 1200 . Patient was stable for discharge home with outpatient follow-up with primary care provider, blade aligner and GI specialist. Due to the rapid and unexpected improvement i9n patient condition, the patient was discharged in one day. FINAL DIAGNOSES: Rhabdomyolysis Chest pain likely secondary to rhabdomyolysis Dehydration Acute kidney injury due to dehydration, resolved Hypertension Abnormal LFT Hepatitis C infection DISCHARGE MEDICATIONS: See Medication Reconciliation list. DISCHARGE INSTRUCTIONS: Patient was discharged home. Outpatient follow-up in one week with the primary care provider, GI specialist for outpatient treatment for hepatitis C and blade aligner for stress test. I have been assigned to dictate discharge summary for this account. I was not involved in the patient's management. Sierra Stevens NP Oct 30, 2017 11:14
== END 2017-10-28 17:55 | disposition home or self-care (01) | DRG 351 ==
LOC: EDBD 03:56 → EMR 04:18 → 2E 08:19 → EDBEDREQ 08:27 → 2E 11:03
DX: M62.82 Rhabdomyolysis (principal); N17.9 Acute kidney failure, unspecified; R07.9 Chest pain, unspecified; R74.0 Nonspecific elevation of levels of transaminase and lactic acid dehydrogenase [LDH]; I10 Essential (primary) hypertension; F31.9 Bipolar disorder, unspecified; E86.0 Dehydration; B19.20 Unspecified viral hepatitis C without hepatic coma; R79.89 Other specified abnormal findings of blood chemistry
CPT/HCPCS: 36415; 71045; 74176; 80048; 80053; 80061; 80076; 80307; 80329; 82248; 82550; 82553; 82962; 83690; 83880; 84484; 85025; 86140; 86705; 86709; 86803; 87340; 93005; 93017; 93306; 93350; 99285